=== PATIENT | female | born 1990 | race Caucasian/White ===

== ENCOUNTER 2021-07-06 08:41 | Inpatient (IN) | payer BC ==
[2021-07-06] MEDS ORDERED: Promethazine HCl 25 MG/ML VIAL IM PRN (08:46)
[2021-07-06] MEDS ORDERED: hydrALAZINE 20 MG/ML VIAL SLOW IVP PRN ×2 (08:46→18:11)
[2021-07-06] MEDS ORDERED: Butorphanol Tartrate 1 MG/ML VIAL SLOW IVP PRN (08:46)
[2021-07-06] MEDS ORDERED: HYDROcodone/Acetaminophen 5/325 mg Tablet PO PRN ×4 (08:46→18:11)
[2021-07-06] MEDS ORDERED: Ondansetron PF 4 MG/2 ML Vial IVP PRN (08:46)
[2021-07-06] MEDS ORDERED: Acetaminophen 500 MG TAB PO PRN (08:46)
[2021-07-06] MEDS ORDERED: Diphenoxylate HCl/Atropine Tablet PO PRN ×2 (08:46)
[2021-07-06] MEDS ORDERED: Misoprostol 200 MCG TAB PR PRN (08:46)
[2021-07-06] MEDS ORDERED: Docusate 100 MG CAP PO PRN (08:46)
[2021-07-06] MEDS ORDERED: Lidocaine 1% (PF) 30 ML VIAL SC PRN (08:46)
[2021-07-06] MEDS ORDERED: NS w/ Oxytocin 30 units 500 ML IV SCH ×3 (09:00→22:00)
[2021-07-06] MEDS ORDERED: Lactated Ringer's 1,000 ML IV SCH (09:00)
[2021-07-06 10:00] LABS: Hemoglobin 12.1 g/dL (12.0-15.5); Mean Corpuscular HGB CONC 34.8 g/dL (32.0-36.0); Mean Corpuscular Hemoglobin 30.2 pg (27.0-33.0); Mean Corpuscular Volume 86.8 fl (81.6-98.3); Mean Platelet Volume 10.8 fl (7.4-10.4); Platelet Count 168 10x3/uL (150-450); Red Blood Cell (RBC) Count 4.01 10x6/uL (3.90-5.03); White Blood Cell (WBC) Count 9.2 10x3/uL (3.5-10.5)
[2021-07-06 10:49] LABS: SARS-CoV-2 NAA Rapid Test Not Detected (NotDetected)
[2021-07-06 10:53] LABS: Syphilis Antibody Nonreactive (Nonreactive); Syphilis Antibody Index 0.07 S/CO (<1.00 Non-Reactive)
[2021-07-06 10:59] LABS: HIV (1/2) Antibody/Antigen Non-Reactive (NonReactive); HIV 1/2 INDEX 0.11 S/CO (<1.00); Hep B Surf Ag Non-Reactive S/CO (NonReactive)
[2021-07-06 11:12] LABS: HBSAg Index 0.15 S/CO (0-0.99)
[2021-07-06 12:43] VITALS: BMI 28.3
[2021-07-06] MEDS ORDERED: Mineral Oil ENEMA PR SCH (13:45)
[2021-07-06] MEDS ORDERED: Preparation H Ointment 28 GM TUBE PR PRN (18:11)
[2021-07-06] MEDS ORDERED: diphenhydrAMINE 25 MG CAP PO PRN (18:11)
[2021-07-06] MEDS ORDERED: Milk Of Magnesia 30 ML UDCUP PO PRN (18:11)
[2021-07-06] MEDS ORDERED: Lanolin Ointment 7 GM TUBE TOP PRN (18:11)
[2021-07-06] MEDS ORDERED: Misoprostol 200 MCG TAB VAG PRN (18:11)
[2021-07-06] MEDS ORDERED: Boostrix 0.5 ML (Tdap) VIAL IM ONE (18:11)
[2021-07-06] MEDS ORDERED: Benzocaine-Menthol 82.5 ML CAN TOP PRN (18:11)
[2021-07-06] MEDS ORDERED: Zolpidem Tartrate 5 MG TAB PO PRN (18:11)
[2021-07-06] MEDS ORDERED: Bisacodyl 10 MG SUPP PR PRN (18:11)
[2021-07-06] MEDS ORDERED: Witch Hazel-Glycerin 1 EACH JAR TOP PRN (18:13)
[2021-07-06] MEDS ORDERED: Docusate 100 MG CAP PO SCH (21:45)
[2021-07-06] MEDS: Ibuprofen 800 MG TAB PO SCH (22:21)
[2021-07-07] MEDS: Ibuprofen 800 MG TAB PO SCH ×3 (06:18→22:30)
[2021-07-07] MEDS: Docusate 100 MG CAP PO SCH ×2 (08:03→22:32)
[2021-07-07] MEDS: Ferrous Sulfate 325 MG TAB PO SCH ×2 (08:05→15:16)
[2021-07-08] MEDS ORDERED: Preparation H Ointment 57 gram tube TOP PRN (02:53)
[2021-07-08] MEDS ORDERED: Preparation H Ointment 57 gram tube RC PRN (03:00)
[2021-07-08] MEDS: Ibuprofen 800 MG TAB PO SCH (05:52)
[2021-07-08 07:56] VITALS: BP 107/71; TEMP 98.5
[2021-07-08] MEDS: Ferrous Sulfate 325 MG TAB PO SCH (08:26)
[2021-07-08] MEDS: Docusate 100 MG CAP PO SCH (08:31)
== END 2021-07-08 13:10 | disposition home or self-care (01) | DRG 807 ==
LOC: CSHLD/OP 08:41 → CSHLD 08:45 → CSHPP 20:55
PROVIDERS: ADMIT Obstetrics & Gynecology; ATTEND Obstetrics & Gynecology
PROC: 10E0XZZ Delivery of Products of Conception, External Approach (ICD-10-PCS; principal; 2021-07-06)
PROC: 3E0334Z Introduction of Serum, Toxoid and Vaccine into Peripheral Vein, Percutaneous Approach (ICD-10-PCS; 2021-07-06)
DX: O42.02 Full-term premature rupture of membranes, onset of labor within 24 hours of rupture (principal); Z37.0 Single live birth; O26.893 Other specified pregnancy related conditions, third trimester; Z67.41 Type O blood, Rh negative; Z20.822 Contact with and (suspected) exposure to COVID-19; Z3A.39 39 weeks gestation of pregnancy
CPT/HCPCS: 85027; 85461; 86780; 86850; 86870; 86900; 86901; 87340; 87389; 90384; 96372; J2590; U0002